=== PATIENT | female | born 1970 | race Native Hawaiian/Other Pacific Islander ===

== ENCOUNTER 2020-07-02 13:35 | Outpatient (CLI) | payer OTHER | END 2020-07-02 23:07 | disposition home or self-care (01) | LOC: MAMMO 13:35 | PROVIDERS: ATTEND Nurse Practitioner Family | DX: Z12.31 Encounter for screening mammogram for malignant neoplasm of breast (principal); N60.19 Diffuse cystic mastopathy of unspecified breast ==

== ENCOUNTER 2020-07-16 14:02 | Outpatient (CLI) | payer OTHER | END 2020-07-16 21:53 | disposition home or self-care (01) | LOC: US 14:02 | PROVIDERS: ATTEND Nurse Practitioner Family | DX: R92.8 Other abnormal and inconclusive findings on diagnostic imaging of breast (principal) ==